=== PATIENT | female | born 1990 | race African-American/Black ===

== ENCOUNTER 2020-09-26 19:18 | Emergency (ER) | payer MEDICAID ==
[~2020-09-26] VITALS: Ht 160 cm; Wt 91.0 kg
[2020-09-26] MEDS ORDERED: SODIUM CHLORIDE 0.9% 1,000 ML IV ONE (22:15)
[2020-09-26] MEDS ORDERED: HYDROMORPHONE HCL/PF 2MG/ML CPJ IV ONE (22:15)
[2020-09-27 01:17] LABS: BASOPHILS % 0.2 % (0.0-2.0); EOSINOPHILS % 4.8 % (0.0-5.0); HEMATOCRIT. 31.3 % (36.0-48.0); HEMOGLOBIN. 10.3 g/dL (12.0-16.0); LYMPHOCYTES % 18.3 % (20.0-50.0); MEAN CORPUSCULAR HEMOGLOBIN 23.1 pg (28.0-32.0); MEAN CORPUSCULAR VOLUME 70.5 fL (81.0-99.0); MEAN PLATELET VOLUME 8.8 fl (7.4-10.4); MONOCYTES % 7.9 % (2.0-8.0); NEUTROPHILS % 68.8 % (40.0-76.0); PLATELET 312 x1000/uL (130-400); RED BLOOD CELL COUNT 4.43 mill/uL (4.2-5.4); RED CELL DISTRIBUTION WIDTH 25.9 % (11.6-14.6)
[2020-09-27 01:20] LABS: CHLORIDE 105 mEq/L (98-107)
[2020-09-27 01:43] LABS: B-HCG QUANTITATIVE 79393 mIU/mL (<3)
[2020-09-27] MEDS: DIPHENHYDRAMINE 25MG CAPSULE PO ONE ×2 (02:00→03:07)
[2020-09-27] MEDS ORDERED: HYDROMORPHONE HCL/PF 2MG/ML CPJ IV ONE (02:00)
[2020-09-27 04:25] VITALS: BP 105/57
== END 2020-09-27 04:23 | disposition home or self-care (01) ==
LOC: ER 19:18
DX: R10.2 Pelvic and perineal pain (principal); Z88.0 Allergy status to penicillin; Z88.1 Allergy status to other antibiotic agents; Z98.890 Other specified postprocedural states; Z86.73 Personal history of transient ischemic attack (TIA), and cerebral infarction without residual deficits
CPT/HCPCS: 36415; 76801; 80053; 84702; 85025; 85044; 86850; 86900; 86901; 96374; 96376; 99285; C1893; J1170; J7030; Q0163; Z7610